=== PATIENT | female | born 1995 | race African-American/Black ===

== ENCOUNTER → 2023-09-26 06:40 | Outpatient (CLI) | payer OTHER, SELFPAY ==
--- NOTE | 2023-09-26 06:42 | DI.US.S_ITS ---
PROCEDURE: US OB >= 14 WEEKS FETUS INDICATIONS: anatomy OUTSIDE/PRIOR DATING DATA: Last menstrual period (LMP): 04/27/2023. LMP-based estimated date of delivery (RONDA): 02/01/2024. TECHNIQUE: Real-time scanning was performed of the fetus, with image documentation and biometric measurements. COMPARISON: [facility], US, OB >= 14 WEEKS FETUS, 09/21/2023, 15:40. FINDINGS: General: A single living intrauterine gestation is present. Presentation: Vertex. Placenta: Placental position is fundal , without previa. Amniotic fluid index: 15.8 cm, normal range is 5-24 cm. Single deepest vertical pocket is 5.7 cm. heart rate: 153 beats per minute. Maternal cervical canal: 3.4 cm long. Normal lower limit is 2.5 cm. biometrics: Biparietal diameter: 5.4 cm, 22 weeks and 3 days Head circumference: 19.9 cm, 22 weeks and 1 day Abdominal circumference: 17.6 cm, 22 weeks and 4 days Femur length: 3.8 cm, 22 weeks and 2 days Clinically estimated gestational age: 21 weeks and 5 days Composite gestational age from present scan: 22 weeks and 3 days Estimated weight and percentile: 500 g, 79th percentile Anatomic survey: Neuro: Ventricles are non-dilated at less than 10 mm. Cisterna magna is normal at 3-11 mm. Cerebellum is normal in size and morphology. Nuchal skin fold: Normal at less than 6 mm between 14-21 weeks gestational age. Face: Nose and lips, facial profile are normal. Spine: No evidence for spina bifida. Heart: 4-chambered heart is present LVOT unremarkable. RVOT is probably normal, but not well seen on 1 the plane. Diaphragm: Diaphragm is intact. Stomach: Left-sided stomach is present. Kidneys: Renal pelvises measure 5 mm bilaterally. Cord: 3-vessel cord has orthotopic insertion. Bladder: Normal in size. Extremities: All 4 extremities identified. IMPRESSION: Living intrauterine gestation at 22 weeks and 3 days. EFW is within normal limits at the 79th percentile. Bilateral borderline renal pelviectasis at 5 mm bilaterally. UTD A1. RVOT was not well seen, possibly within normal limits on cine view. Consider follow-up for the above findings. Dictated by: Florencio Alicia M.D. on 09/26/2023 at 11:44 Approved by: Florencio Alicia M.D. on 09/26/2023 at 11:52
== END ==
LOC: US 06:41
PROVIDERS: PCP Internal Medicine; Referring Provider Student in an Organized Health Care Education/Training Program; Visit Provider Student in an Organized Health Care Education/Training Program
DX: Z34.82 Encounter for supervision of other normal pregnancy, second trimester (principal); Z3A.22 22 weeks gestation of pregnancy
CPT/HCPCS: 76811

== ENCOUNTER → 2023-10-29 16:50 | Outpatient (CLI) | payer OTHER, SELFPAY ==
--- NOTE | 2023-10-29 16:51 | DI.US.S_ITS ---
PROCEDURE: US OB FOLLOW UP INDICATIONS: renal pelviectasis, LVOT not visualized, f/u growth OUTSIDE/PRIOR DATING DATA: Last menstrual period (LMP): 04/27/2023. LMP-based estimated date of delivery (RONDA): 02/01/2024. TECHNIQUE: Real-time scanning was performed of the fetus, with image documentation. COMPARISON: [facility], , US OB >= 14 WEEKS FETUS, 09/26/2023, 6:53. [facility], , US OB >= 14 WEEKS FETUS, 10/05/2023, 8:22. FINDINGS: A single living intrauterine gestation is present. Presentation: Transverse. Placenta: Placental position is fundal, without previa. Amniotic fluid index: 13.3 cm, normal range is 5-24 cm. Single deepest vertical pocket is 3.8 cm. heart rate: 152 beats per minute. Maternal cervical canal: 3 cm long. Normal lower limit is 2.5 cm. Clinically estimated gestational age: 28 weeks RVOT is within normal limits. The right renal pelvis is not well seen on today's study. IMPRESSION: RVOT within normal limits. Right renal pelvis not well seen on today's study. Normal ABDIRAHMAN. Dictated by: Florencio Alicia M.D. on 10/30/2023 at 9:23 Approved by: Florencio Alicia M.D. on 10/30/2023 at 9:26
== END ==
PROVIDERS: PCP Internal Medicine; Referring Provider Student in an Organized Health Care Education/Training Program; Visit Provider Student in an Organized Health Care Education/Training Program
DX: Z36.2 Encounter for other antenatal screening follow-up (principal); Z3A.28 28 weeks gestation of pregnancy
CPT/HCPCS: 76816

== ENCOUNTER → 2023-10-31 10:33 | Outpatient (CLI) | payer OTHER, SELFPAY ==
[2023-10-31 12:05] LABS: Hemoglobin 10.3 g/dL (12.0-16.0)
[2023-10-31 12:29] LABS: GTT (PREG) 1 Hour PP 50gm Dose 145 mg/dL (76-139)
== END ==
PROVIDERS: PCP Internal Medicine; Referring Provider Student in an Organized Health Care Education/Training Program; Visit Provider Student in an Organized Health Care Education/Training Program
DX: Z34.02 Encounter for supervision of normal first pregnancy, second trimester (principal); Z3A.26 26 weeks gestation of pregnancy
CPT/HCPCS: 36415; 82950; 85014; 85018; 86850; 86900; 86901

== ENCOUNTER → 2023-11-09 07:45 | Outpatient (CLI) | payer OTHER, SELFPAY ==
[2023-11-09 09:08] LABS: Glucose Fasting Gestational 89 mg/dL (76-95)
[2023-11-09 10:31] LABS: Glucose 1 Hour Gest 183 mg/dL (76-180)
[2023-11-09 11:11] LABS: Glucose Tol Interp,Gestational INTERPRETATION
[2023-11-09 12:07] LABS: Glucose 2 Hour Gest 141 mg/dL (76-155)
[2023-11-09 12:11] LABS: Glucose 3 Hour Gest 104 mg/dL (76-140)
== END ==
PROVIDERS: PCP Internal Medicine; Referring Provider Student in an Organized Health Care Education/Training Program; Visit Provider Student in an Organized Health Care Education/Training Program
DX: Z34.80 Encounter for supervision of other normal pregnancy, unspecified trimester (principal); R73.09 Other abnormal glucose
CPT/HCPCS: 36415; 82951; 82952

== ENCOUNTER 2023-12-07 08:47 | Outpatient (CLI) | payer OTHER, SELFPAY ==
--- NOTE | 2023-12-07 08:54 | DI.US.S_ITS ---
PROCEDURE: US OB >= 14 WEEKS FETUS INDICATIONS: growth OUTSIDE/PRIOR DATING DATA: Last menstrual period (LMP): 04/27/2023. LMP-based estimated date of delivery (RONDA): 02/01/2024 First dating scan (date and location): Un known Estimated date of delivery (RONDA) from first dating scan: Unknown. The calculations are made using the clinical RONDA of 02/01/2024. TECHNIQUE: Real-time scanning was performed of the fetus, with image documentation and biometric measurements. COMPARISON: [facility], , OB >= 14 WEEKS FETUS, 10/05/2023, 8:22. [facility], , OB FOLLOW UP, 10/29/2023, 17:03. FINDINGS: General: A single living intrauterine gestation is present. Presentation: Vertex. Placenta: Placental position is fundal , without previa. Amniotic fluid index: 20.1 cm, normal range is 5-24 cm. Single deepest vertical pocket is 8.2 cm. heart rate: 157 beats per minute. Maternal cervical canal: Not well seen biometrics: Biparietal diameter: 8.2 cm 33 weeks 0 days Head circumference: 29.4 cm 32 weeks 3 days Abdominal circumference: 27.7 cm 31 weeks 5 days Femur length: 6.2 cm 32 weeks 0 days Clinically estimated gestational age: 32 weeks 0 days Composite gestational age from present scan: 32 weeks 2 days Estimated weight and percentile: 1884 g 39th percentile IMPRESSION: Single live intrauterine with gestational age today of 32 weeks 2 days. Appropriate interval growth and ABDIRAHMAN. We strive to produce accurate, complete, and clear reports of imaging services. To assist us in improving patient care, this report was composed using standard report templates and voice recognition software. Therefore, it may contain abnormal punctuation, insertions and/or omissions. Occasional wrong-word or sound-alike substitutions may occur. Though we review the report and make efforts to correct it, we do recommend that the report be read carefully in proper context to recognize any text inaccuracies. Dictated by: Shazia Blandon M.D. on 12/07/2023 at 11:34 Approved by: Shazia Blandon M.D. on 12/07/2023 at 11:36
[2023-12-07 09:32] LABS: Add Manual Diff / Slide Review NO; Basophils Absolute Auto 0 /uL (0-100); Basophils Percent Auto 0.5 % (0-2); Eosinophils Absolute Auto 100 /uL (0-450); Eosinophils Percent Auto 0.7 % (2-4); Hematocrit 30.4 % (36-46); Hemoglobin 9.9 g/dL (12.0-16.0); Lymphocytes Absolute Auto 1100 /uL (1100-4500); Lymphocytes Percent Auto 14.8 % (25-40); Mean Corpuscular HGB Conc 32.8 % (30-36); Mean Corpuscular Hemoglobin 26.1 PG (26-34); Mean Corpuscular Volume 79.7 fL (80-100); Monocytes Absolute Auto 700 /uL (0-900); Monocytes Percent Auto 9.6 % (3-14); Neutrophils Absolute Auto 5500 /uL (1500-7000); Neutrophils Percent Auto 74.4 % (50-75); Platelet Count 281 X10^3/uL (150-400); Red Blood Cell Count 3.81 X10^6/uL (4.0-5.2); Red Cell Distribution Width 16.1 % (11.6-14.8); White Blood Cell Count 7.4 X10^3/uL (4.5-11.0)
[2023-12-07 09:46] LABS: Alanine Aminotransferase 12 IU/L (<35); Albumin 3.2 g/dL (3.5-5.0); Alkaline Phosphatase 87 U/L (38-126); Aspartate Aminotransferase 20 IU/L (14-36); BUN Creatinine Ratio 5.2 (6-22); Bilirubin Total 0.3 mg/dL (0.2-1.3); Blood Urea Nitrogen 3 mg/dL (7-17); Calcium 8.7 mg/dL (8.4-10.2); Carbon Dioxide 24 mmol/L (22-32); Chloride 109 mmol/L (98-107); Estimated Glomerular Filt Rate > 60 mL/min (>60); Globulin 3.3 g/dL (1.7-4.1); Glucose 88 mg/dL (70-100); HEMOLYSIS < 15 (0-50); Potassium 3.3 mmol/L (3.4-5.1); Sodium 136 mmol/L (137-145); Total Protein 6.5 g/dL (6.3-8.2); Uric Acid 4.5 mg/dL (2.5-6.2)
[2023-12-07 09:48] LABS: Appearance Urine UA CLEAR; Bilirubin Urine UA NEGATIVE (NEGATIVE); Color Urine UA YELLOW; Glucose Urine UA NEGATIVE (Negative); Ketones Urine UA NEGATIVE (NEGATIVE); Leukocyte Esterase Urine UA NEGATIVE (NEGATIVE); Nitrite Urine UA NEGATIVE (Negative); Occult Blood Urine UA NEGATIVE (Negative); Protein Urine UA NEGATIVE (Negative); Urobilinogen Urine UA 0.2 E.U./dL (0.2)
[2023-12-07 09:54] LABS: Urine Volume 10mL (spun)
[2023-12-07 09:55] LABS: Bacteria Urine None Seen; Culture Indicated Urine Cult Not Indicated; RBC Urine None Seen (0-5/HPF); Squamous Epithelial Cell Urine None Seen (0-5/HPF); WBC Urine None Seen (0-5/HPF)
[2023-12-07 09:57] LABS: Creatinine Urine Random 64.02 mg/dL; Protein (Total) Urine Random 23 mg/dL (0-12); Protein Creatinine Ratio Urine 0.35 GRAM/24H
--- NOTE | 2023-12-07 10:19 | P.TNLD_ITS ---
Visit Information Visit Information Date of evaluation: 12/07/23 Primary OB Provider: Kelli Zuleta Comments/Additional reasons for admission: pre-eclampsia evaluation Vital Signs Vital Signs: serial BPs all mild range, with highest BP 149/83 see OBIX [facility] Medical History (Updated 12/07/23 @ 11:06 by Kelli Zuleta DO) Tinnitus (~2020) Heavy menstrual period (~2018) delivery Surgical History (Updated 11/01/23 @ 19:10 by Ruby Chacon) [place] teeth extracted (~07/2022) Family History (Updated 11/01/23 @ 19:12 by Ruby Chacon) Grandmother Diabetes mellitus Grandmother Diabetes mellitus Father Hypertension Sister Bipolar disorder Schizophrenia Sister Diabetes mellitus Grandmother Diabetes mellitus Grandmother Diabetes mellitus Social History marital status: number of children: 0 household members: spouse lives independently: Yes caregiver/support person: No housing: house pets and animals: Yes (dog) education level: college (some college) occupational status: employed current occupational exposures/hazards: No special ev needs: No travel history: over 6 months ago seatbelt use: always water heater temp set < 120 deg: Yes working smoke detector in home: Yes fire extinguisher in home: No carbon monox detector in home: Yes firearms in home: No do you feel safe at home: Yes Smoking Status: Never smoker second hand exposure: No alcohol intake: former (occasionally when not ) substance use type: does not use during the past year weight has: remained stable well-balanced diet: about half the time daily servings fruits/ve-4 (average 1-2) caffeine: Yes (minimal/occasional) Type(s) of exercise: walking Objective Labs 12/07/23 09:17 12/07/23 09:17 Labs: Laboratory Results - last 24 hr 12/07/23 12/07/23 09:15 09:17 WBC 7.4 RBC 3.81 L Hgb 9.9 L Hct 30.4 L MCV 79.7 L MCH 26.1 MCHC 32.8 RDW 16.1 H Plt Count 281 Neut % (Auto) 74.4 Lymph % (Auto) 14.8 L Clare % (Auto) 9.6 Eos % (Auto) 0.7 L Baso % (Auto) 0.5 Neut # (Auto) 5500 Lymph # (Auto) 1100 Clare # (Auto) 700 Eos # (Auto) 100 Baso # (Auto) 0 Sodium 136 L Potassium 3.3 L Chloride 109 H Carbon Dioxide 24 BUN 3 L Creatinine 0.58 Estimated GFR > 60 BUN/Creatinine Ratio 5.2 L Glucose 88 Uric Acid 4.5 Calcium 8.7 Total Bilirubin 0.3 AST 20 ALT 12 Alkaline Phosphatase 87 Total Protein 6.5 Albumin 3.2 L Globulin 3.3 Albumin/Globulin Ratio 1.0 Urine Color Yellow Urine Appearance Clear Urine pH 7.0 Ur Specific Lamar 1.010 Urine Protein Negative Urine Glucose (UA) Negative Urine Ketones Negative Urine Occult Blood Negative Urine Nitrate Negative Urine Bilirubin Negative Urine Urobilinogen 0.2 Ur Leukocyte Esterase Negative Urine RBC None seen Urine WBC None seen Ur Squamous Epith Cells None seen Urine Bacteria None seen Ur Culture Indicated? Cult not indicated Vol Urine Centrifuged 10ml (spun) U Random Total Protein 23 H Urine Creatinine 64.02 Protein/Creatinin Ratio 0.35 Evaluation Evaluation Baseline heart rate: 140 Variability: Moderate (11-25) monitor accelerations: Present Monitor Decelerations: Absent Category of Tracing: Reactive Diagnosis, Plan/Disposition Final Diagnosis (1) Pre-eclampsia, mild, antepartum: Status: Acute Plan/Disposition Plan: 28yo at 32+0wks now with newly diagnosed pre-e without severe features based on mild range blood pressures and urine p:c of 0.35 today. I discussed her diagnosis with her, and reviewed signs/symptoms of severe features. Discussed plan for twice weekly NSTs, with weekly labs, and plan for induction by 37+0wks if she does not develop severe features. -all her and her partner's questions were answered at this time -pt to f/u next week as scheduled OB Disposition: home
== END 2023-12-07 10:18 | disposition home or self-care (01) ==
LOC: LABOR 08:49 → OB 12-10 13:09
PROVIDERS: PCP Internal Medicine; Referring Provider Student in an Organized Health Care Education/Training Program; Visit Provider Student in an Organized Health Care Education/Training Program
DX: O14.03 Mild to moderate pre-eclampsia, third trimester (principal); Z3A.32 32 weeks gestation of pregnancy
CPT/HCPCS: 36415; 59025; 76811; 80053; 81001; 84550; 85025; G0378; G0379

== ENCOUNTER 2023-12-11 16:40 | Outpatient (CLI) | payer OTHER, SELFPAY | END 2023-12-11 17:20 | disposition home or self-care (01) | LOC: OB 12-12 09:20 | PROVIDERS: PCP Internal Medicine; Referring Provider Student in an Organized Health Care Education/Training Program; Visit Provider Student in an Organized Health Care Education/Training Program | DX: O14.93 Unspecified pre-eclampsia, third trimester (principal); Z3A.32 32 weeks gestation of pregnancy | CPT/HCPCS: 59025; G0378; G0379 ==

== ENCOUNTER 2023-12-14 16:44 | Outpatient (CLI) | payer OTHER, SELFPAY ==
--- NOTE | 2023-12-14 17:20 | PM.OBTRLD ---
Visit Information Visit Information Date of evaluation: 12/14/23 Primary OB Provider: Kelli Zuleta On-call OB Provider: gina Reason for Evaluation: Yes non-stress test Comments/Additional reasons for admission: preE without severe features weekly PIH labs [facility] Medical History (Updated 12/07/23 @ 11:06 by Kelli Zuleta DO) Tinnitus (~2020) Heavy menstrual period (~2018) delivery Surgical History (Updated 11/01/23 @ 19:10 by Ruby Chacon) [place] teeth extracted (~07/2022) Family History (Updated 11/01/23 @ 19:12 by Ruby Chacon) Grandmother Diabetes mellitus Grandmother Diabetes mellitus Father Hypertension Sister Bipolar disorder Schizophrenia Sister Diabetes mellitus Grandmother Diabetes mellitus Grandmother Diabetes mellitus Social History marital status: number of children: 0 household members: spouse lives independently: Yes caregiver/support person: No housing: house pets and animals: Yes (dog) education level: college (some college) occupational status: employed current occupational exposures/hazards: No special ev needs: No travel history: over 6 months ago seatbelt use: always water heater temp set < 120 deg: Yes working smoke detector in home: Yes fire extinguisher in home: No carbon monox detector in home: Yes firearms in home: No do you feel safe at home: Yes Smoking Status: Never smoker second hand exposure: No alcohol intake: former (occasionally when not ) substance use type: does not use during the past year weight has: remained stable well-balanced diet: about half the time daily servings fruits/ve-4 (average 1-2) caffeine: Yes (minimal/occasional) Type(s) of exercise: walking Exam Vital Signs (past 8 hours): BP 133/83 HR 76 Evaluation Evaluation Baseline heart rate: 140 Variability: Average (6-10) monitor accelerations: Present Monitor Decelerations: Absent Category of Tracing: Reactive Status: Category l Diagnosis, Plan/Disposition Plan/Disposition Plan: strict precautions keep all appts as scheduled OB Disposition: home
[2023-12-14 17:38] LABS: Add Manual Diff / Slide Review NO; Basophils Absolute Auto 0 /uL (0-100); Basophils Percent Auto 0.5 % (0-2); Eosinophils Absolute Auto 100 /uL (0-450); Eosinophils Percent Auto 1.6 % (2-4); Hematocrit 31.2 % (36-46); Hemoglobin 10.4 g/dL (12.0-16.0); Lymphocytes Absolute Auto 1300 /uL (1100-4500); Lymphocytes Percent Auto 15.3 % (25-40); Mean Corpuscular HGB Conc 33.2 % (30-36); Mean Corpuscular Hemoglobin 26.6 PG (26-34); Mean Corpuscular Volume 80.1 fL (80-100); Monocytes Absolute Auto 1000 /uL (0-900); Neutrophils Absolute Auto 6000 /uL (1500-7000); Neutrophils Percent Auto 70.6 % (50-75); Platelet Count 349 X10^3/uL (150-400); Red Blood Cell Count 3.89 X10^6/uL (4.0-5.2); Red Cell Distribution Width 16.1 % (11.6-14.8); White Blood Cell Count 8.5 X10^3/uL (4.5-11.0)
[2023-12-14 17:51] LABS: Alanine Aminotransferase 10 IU/L (<35); Albumin 3.5 g/dL (3.5-5.0); Albumin Globulin Ratio 1.2 (1.0-2.8); Alkaline Phosphatase 88 U/L (38-126); Aspartate Aminotransferase 18 IU/L (14-36); BUN Creatinine Ratio 5.6 (6-22); Bilirubin Total 0.3 mg/dL (0.2-1.3); Blood Urea Nitrogen 4 mg/dL (7-17); Calcium 8.8 mg/dL (8.4-10.2); Carbon Dioxide 23 mmol/L (22-32); Chloride 106 mmol/L (98-107); Estimated Glomerular Filt Rate > 60 mL/min (>60); Glucose 86 mg/dL (70-100); HEMOLYSIS < 15 (0-50); Potassium 3.8 mmol/L (3.4-5.1); Sodium 134 mmol/L (137-145); Total Protein 6.5 g/dL (6.3-8.2)
== END 2023-12-14 17:35 | disposition home or self-care (01) ==
LOC: OB 12-17 09:08
PROVIDERS: Obstetrics & Gynecology; PCP Internal Medicine; Referring Provider Student in an Organized Health Care Education/Training Program; Visit Provider Student in an Organized Health Care Education/Training Program
DX: O14.03 Mild to moderate pre-eclampsia, third trimester (principal); Z3A.33 33 weeks gestation of pregnancy
CPT/HCPCS: 36415; 59025; 80053; 85025; G0378; G0379

== ENCOUNTER 2023-12-18 16:52 | Outpatient (CLI) | payer OTHER, SELFPAY ==
--- NOTE | 2023-12-18 17:16 | P.TNLD_ITS ---
Visit Information Visit Information Date of evaluation: 12/18/23 Primary OB Provider: Kelli Zuleta On-call OB Provider: Lisa Savage Reason for Evaluation: Yes non-stress test Comments/Additional reasons for admission: GDM, preE without severe features on labetalol Vital Signs Vital Signs: BP 110s/60s, 105/70 PFSH Medical History (Updated 12/07/23 @ 11:06 by Kelli Zuleta DO) Tinnitus (~2020) Heavy menstrual period (~2018) delivery Surgical History (Updated 11/01/23 @ 19:10 by Ruby Chacon) [place] teeth extracted (~07/2022) Family History (Updated 11/01/23 @ 19:12 by Ruby Chacon) Grandmother Diabetes mellitus Grandmother Diabetes mellitus Father Hypertension Sister Bipolar disorder Schizophrenia Sister Diabetes mellitus Grandmother Diabetes mellitus Grandmother Diabetes mellitus Social History marital status: number of children: 0 household members: spouse lives independently: Yes caregiver/support person: No housing: house pets and animals: Yes (dog) education level: college (some college) occupational status: employed current occupational exposures/hazards: No special ev needs: No travel history: over 6 months ago seatbelt use: always water heater temp set < 120 deg: Yes working smoke detector in home: Yes fire extinguisher in home: No carbon monox detector in home: Yes firearms in home: No do you feel safe at home: Yes Smoking Status: Never smoker second hand exposure: No alcohol intake: former (occasionally when not ) substance use type: does not use during the past year weight has: remained stable well-balanced diet: about half the time daily servings fruits/ve-4 (average 1-2) caffeine: Yes (minimal/occasional) Type(s) of exercise: walking Evaluation Evaluation Baseline heart rate: 130 Variability: Moderate (11-25) monitor accelerations: Present Monitor Decelerations: Absent Status: Category l Diagnosis, Plan/Disposition Plan/Disposition Plan: reactive NST, strict preE/PTl precautions, return as scheduled for twice weekly surveillance, plan repeat interval PIH labs at time of next encounter OB Disposition: home
== END 2023-12-18 17:40 | disposition home or self-care (01) ==
LOC: LABOR 17:03 → OB 12-20 12:32
PROVIDERS: PCP Internal Medicine; Referring Provider Student in an Organized Health Care Education/Training Program; Visit Provider Student in an Organized Health Care Education/Training Program
DX: O14.03 Mild to moderate pre-eclampsia, third trimester (principal); O24.913 Unspecified diabetes mellitus in pregnancy, third trimester; Z3A.33 33 weeks gestation of pregnancy
CPT/HCPCS: 59025; G0378; G0379

== ENCOUNTER 2023-12-21 08:30 | Outpatient (CLI) | payer OTHER, SELFPAY ==
--- NOTE | 2023-12-21 09:24 | PM.OBTRLD ---
Visit Information Visit Information Date of evaluation: 12/21/23 Primary OB Provider: Kelli Zuleta Reason for Evaluation: Yes non-stress test Vital Signs Vital Signs: BP 142/89, 128/77, 133/80, 140/85 [facility] Medical History (Updated 12/07/23 @ 11:06 by Kelli Zuleta DO) Tinnitus (~2020) Heavy menstrual period (~2018) delivery Surgical History (Updated 11/01/23 @ 19:10 by Ruby Chacon) [place] teeth extracted (~07/2022) Family History (Updated 11/01/23 @ 19:12 by Ruby Chacon) Grandmother Diabetes mellitus Grandmother Diabetes mellitus Father Hypertension Sister Bipolar disorder Schizophrenia Sister Diabetes mellitus Grandmother Diabetes mellitus Grandmother Diabetes mellitus Social History marital status: number of children: 0 household members: spouse lives independently: Yes caregiver/support person: No housing: house pets and animals: Yes (dog) education level: college (some college) occupational status: employed current occupational exposures/hazards: No special ev needs: No travel history: over 6 months ago seatbelt use: always water heater temp set < 120 deg: Yes working smoke detector in home: Yes fire extinguisher in home: No carbon monox detector in home: Yes firearms in home: No do you feel safe at home: Yes Smoking Status: Never smoker second hand exposure: No alcohol intake: former (occasionally when not ) substance use type: does not use during the past year weight has: remained stable well-balanced diet: about half the time daily servings fruits/ve-4 (average 1-2) caffeine: Yes (minimal/occasional) Type(s) of exercise: walking Objective Labs 12/21/23 09:22 12/21/23 09:22 Labs: ALT/AST 02/27 Evaluation Evaluation Baseline heart rate: 135 Variability: Moderate (11-25) monitor accelerations: Present Monitor Decelerations: Absent Category of Tracing: Reactive Diagnosis, Plan/Disposition Final Diagnosis (1) Pre-eclampsia, mild, antepartum: Status: Acute Plan/Disposition Plan: Follow up in clinic as scheduled OB Disposition: home
[2023-12-21 09:26] LABS: Creatinine Urine Random 140.09 mg/dL; Protein (Total) Urine Random 30 mg/dL (0-12); Protein Creatinine Ratio Urine 0.21 GRAM/24H
[2023-12-21 09:31] LABS: Add Manual Diff / Slide Review NO; Basophils Absolute Auto 0 /uL (0-100); Basophils Percent Auto 0.3 % (0-2); Eosinophils Absolute Auto 100 /uL (0-450); Hematocrit 30.2 % (36-46); Lymphocytes Absolute Auto 900 /uL (1100-4500); Lymphocytes Percent Auto 13.4 % (25-40); Mean Corpuscular HGB Conc 33.2 % (30-36); Mean Corpuscular Hemoglobin 26.2 PG (26-34); Mean Corpuscular Volume 79.1 fL (80-100); Monocytes Absolute Auto 700 /uL (0-900); Monocytes Percent Auto 10.5 % (3-14); Neutrophils Absolute Auto 5000 /uL (1500-7000); Neutrophils Percent Auto 74.8 % (50-75); Platelet Count 306 X10^3/uL (150-400); Red Blood Cell Count 3.82 X10^6/uL (4.0-5.2); Red Cell Distribution Width 16.9 % (11.6-14.8); White Blood Cell Count 6.7 X10^3/uL (4.5-11.0)
[2023-12-21 09:44] LABS: Alanine Aminotransferase 10 IU/L (<35); Albumin 3.2 g/dL (3.5-5.0); Albumin Globulin Ratio 1.2 (1.0-2.8); Alkaline Phosphatase 92 U/L (38-126); Aspartate Aminotransferase 17 IU/L (14-36); Bilirubin Total 0.3 mg/dL (0.2-1.3); Calcium 8.8 mg/dL (8.4-10.2); Carbon Dioxide 23 mmol/L (22-32); Chloride 107 mmol/L (98-107); Estimated Glomerular Filt Rate > 60 mL/min (>60); Globulin 2.7 g/dL (1.7-4.1); Glucose 92 mg/dL (70-100); HEMOLYSIS < 15 (0-50); Potassium 3.9 mmol/L (3.4-5.1); Sodium 136 mmol/L (137-145); Total Protein 5.9 g/dL (6.3-8.2); Uric Acid 4.3 mg/dL (2.5-6.2)
[2023-12-21 10:08] LABS: BUN Creatinine Ratio 3.3 (6-22); Blood Urea Nitrogen < 2 mg/dL (7-17)
== END 2023-12-21 10:29 | disposition home or self-care (01) ==
LOC: LABOR 08:44 → OB 12-25 12:22
PROVIDERS: PCP Internal Medicine; Referring Provider Student in an Organized Health Care Education/Training Program; Visit Provider Student in an Organized Health Care Education/Training Program
DX: O14.03 Mild to moderate pre-eclampsia, third trimester (principal); Z3A.34 34 weeks gestation of pregnancy
CPT/HCPCS: 36415; 59025; 80053; 84550; 85025; G0378; G0379

== ENCOUNTER 2023-12-25 16:38 | Observation (INO) | payer OTHER, SELFPAY ==
--- NOTE | 2023-12-25 17:27 | P.TNLD_ITS ---
Visit Information Visit Information Date of evaluation: 12/25/23 Primary OB Provider: Kelli Zuleta Reason for Evaluation: Yes non-stress test Vital Signs Vital Signs: BPs mild range PFSH Medical History (Updated 12/07/23 @ 11:06 by Kelli Zuleta DO) Tinnitus (~2020) Heavy menstrual period (~2018) delivery Surgical History (Updated 11/01/23 @ 19:10 by Ruby Chacon) [place] teeth extracted (~07/2022) Family History (Updated 11/01/23 @ 19:12 by Ruby Chacon) Grandmother Diabetes mellitus Grandmother Diabetes mellitus Father Hypertension Sister Bipolar disorder Schizophrenia Sister Diabetes mellitus Grandmother Diabetes mellitus Grandmother Diabetes mellitus Social History marital status: number of children: 0 household members: spouse lives independently: Yes caregiver/support person: No housing: house pets and animals: Yes (dog) education level: college (some college) occupational status: employed current occupational exposures/hazards: No special ev needs: No travel history: over 6 months ago seatbelt use: always water heater temp set < 120 deg: Yes working smoke detector in home: Yes fire extinguisher in home: No carbon monox detector in home: Yes firearms in home: No do you feel safe at home: Yes Smoking Status: Never smoker second hand exposure: No alcohol intake: former (occasionally when not ) substance use type: does not use during the past year weight has: remained stable well-balanced diet: about half the time daily servings fruits/ve-4 (average 1-2) caffeine: Yes (minimal/occasional) Type(s) of exercise: walking Evaluation Evaluation Baseline heart rate: 130 Variability: Moderate (11-25) monitor accelerations: Present Monitor Decelerations: Absent Category of Tracing: Reactive Diagnosis, Plan/Disposition Final Diagnosis (1) Pre-eclampsia, mild, antepartum: Status: Acute Plan/Disposition Plan: Follow-up in clinic as scheduled. OB Disposition: home
== END 2023-12-25 17:26 | disposition home or self-care (01) ==
PROVIDERS: Admitting Provider Student in an Organized Health Care Education/Training Program; PCP Internal Medicine; Referring Provider Student in an Organized Health Care Education/Training Program; Visit Provider Student in an Organized Health Care Education/Training Program
DX: O14.03 Mild to moderate pre-eclampsia, third trimester (principal); Z3A.34 34 weeks gestation of pregnancy
CPT/HCPCS: 59025; G0378; G0379

== ENCOUNTER 2023-12-28 08:06 | Observation (INO) | payer OTHER, SELFPAY ==
--- NOTE | 2023-12-28 08:58 | P.TNLD_ITS ---
Visit Information Visit Information Date of evaluation: 12/28/23 Primary OB Provider: Kelli Zuleta Reason for Evaluation: Yes non-stress test Vital Signs Vital Signs: BP 137/86 [facility] Medical History (Updated 12/28/23 @ 15:41 by Kelli Zuleta DO) Tinnitus (~2020) Heavy menstrual period (~2018) delivery Surgical History (Updated 11/01/23 @ 19:10 by Ruby Chacon) [place] teeth extracted (~07/2022) Family History (Updated 11/01/23 @ 19:12 by Ruby Chacon) Grandmother Diabetes mellitus Grandmother Diabetes mellitus Father Hypertension Sister Bipolar disorder Schizophrenia Sister Diabetes mellitus Grandmother Diabetes mellitus Grandmother Diabetes mellitus Social History marital status: number of children: 0 household members: spouse lives independently: Yes caregiver/support person: No housing: house pets and animals: Yes (dog) education level: college (some college) occupational status: employed current occupational exposures/hazards: No special ev needs: No travel history: over 6 months ago seatbelt use: always water heater temp set < 120 deg: Yes working smoke detector in home: Yes fire extinguisher in home: No carbon monox detector in home: Yes firearms in home: No do you feel safe at home: Yes Smoking Status: Never smoker second hand exposure: No alcohol intake: former (occasionally when not ) substance use type: does not use during the past year weight has: remained stable well-balanced diet: about half the time daily servings fruits/ve-4 (average 1-2) caffeine: Yes (minimal/occasional) Type(s) of exercise: walking Objective Labs 12/28/23 08:55 12/28/23 08:55 Labs: AST/ALT 47/12 Evaluation Evaluation Baseline heart rate: 145 Variability: Moderate (11-25) monitor accelerations: Present Monitor Decelerations: Absent Category of Tracing: Reactive Diagnosis, Plan/Disposition Final Diagnosis (1) Pre-eclampsia, mild, antepartum: Status: Acute Plan/Disposition Plan: 28-year-old at 35+ 0 weeks with preeclampsia without severe features. Lab work today shows no changes other than increased AST as compared to last week, however not double normal at this point. -reviewed symptoms of severe features with patient -scheduled for induction at 37+ 0 weeks -follow up next week as scheduled OB Disposition: home
[2023-12-28 14:14] LABS: Add Manual Diff / Slide Review NO; Basophils Absolute Auto 100 /uL (0-100); Basophils Percent Auto 0.8 % (0-2); Eosinophils Absolute Auto 100 /uL (0-450); Hematocrit 32.8 % (36-46); Hemoglobin 10.5 g/dL (12.0-16.0); Lymphocytes Absolute Auto 900 /uL (1100-4500); Mean Corpuscular Hemoglobin 25.9 PG (26-34); Mean Corpuscular Volume 80.9 fL (80-100); Monocytes Absolute Auto 700 /uL (0-900); Monocytes Percent Auto 9.8 % (3-14); Neutrophils Absolute Auto 5400 /uL (1500-7000); Neutrophils Percent Auto 75.4 % (50-75); Platelet Count 309 X10^3/uL (150-400); Red Blood Cell Count 4.06 X10^6/uL (4.0-5.2); Red Cell Distribution Width 17.4 % (11.6-14.8); White Blood Cell Count 7.2 X10^3/uL (4.5-11.0)
[2023-12-28 14:19] LABS: Alanine Aminotransferase 12 IU/L (<35); Albumin 3.5 g/dL (3.5-5.0); Albumin Globulin Ratio 1.2 (1.0-2.8); Alkaline Phosphatase 106 U/L (38-126); Aspartate Aminotransferase 47 IU/L (14-36); Bilirubin Total 0.3 mg/dL (0.2-1.3); Calcium 8.8 mg/dL (8.4-10.2); Carbon Dioxide 23 mmol/L (22-32); Chloride 108 mmol/L (98-107); Estimated Glomerular Filt Rate > 60 mL/min (>60); Glucose 79 mg/dL (70-100); HEMOLYSIS < 15 (0-50); Potassium 3.3 mmol/L (3.4-5.1); Sodium 138 mmol/L (137-145); Total Protein 6.5 g/dL (6.3-8.2)
[2023-12-28 14:22] LABS: BUN Creatinine Ratio 3.6 (6-22); Blood Urea Nitrogen < 2 mg/dL (7-17)
== END 2023-12-28 08:57 | disposition home or self-care (01) ==
LOC: LABOR 08:08
PROVIDERS: Admitting Provider Student in an Organized Health Care Education/Training Program; PCP Internal Medicine; Referring Provider Student in an Organized Health Care Education/Training Program; Visit Provider Student in an Organized Health Care Education/Training Program
DX: O14.03 Mild to moderate pre-eclampsia, third trimester (principal); Z3A.35 35 weeks gestation of pregnancy
CPT/HCPCS: 59025; 80053; 85025; 87653; G0378; G0379

== ENCOUNTER → 2023-12-28 09:36 | Outpatient (CLI) | payer OTHER, SELFPAY ==
[2023-12-28 11:41] LABS: Strep Grp B PCR POS for Grp B Strep
== END ==
PROVIDERS: PCP Internal Medicine; Referring Provider Student in an Organized Health Care Education/Training Program; Visit Provider Student in an Organized Health Care Education/Training Program
DX: Z36.85 Encounter for antenatal screening for Streptococcus B (principal)
CPT/HCPCS: 87653

== ENCOUNTER 2023-12-31 17:01 | Observation (INO) | payer OTHER, SELFPAY | END 2023-12-31 17:47 | disposition home or self-care (01) | PROVIDERS: Admitting Provider Student in an Organized Health Care Education/Training Program; PCP Internal Medicine; Referring Provider Student in an Organized Health Care Education/Training Program; Visit Provider Student in an Organized Health Care Education/Training Program | DX: O13.3 Gestational [pregnancy-induced] hypertension without significant proteinuria, third trimester (principal); Z3A.35 35 weeks gestation of pregnancy | CPT/HCPCS: 59025; G0378; G0379 ==

== ENCOUNTER → 2024-01-03 15:57 | Outpatient (CLI) | payer OTHER, SELFPAY ==
[2024-01-03 17:17] LABS: Add Manual Diff / Slide Review NO; Basophils Absolute Auto 0 /uL (0-100); Basophils Percent Auto 0.3 % (0-2); Eosinophils Absolute Auto 100 /uL (0-450); Hemoglobin 10.6 g/dL (12.0-16.0); Lymphocytes Absolute Auto 1200 /uL (1100-4500); Lymphocytes Percent Auto 15.5 % (25-40); Mean Corpuscular Hemoglobin 26.3 PG (26-34); Mean Corpuscular Volume 79.5 fL (80-100); Monocytes Absolute Auto 700 /uL (0-900); Monocytes Percent Auto 9.3 % (3-14); Neutrophils Absolute Auto 5600 /uL (1500-7000); Neutrophils Percent Auto 73.9 % (50-75); Platelet Count 281 X10^3/uL (150-400); Red Blood Cell Count 4.03 X10^6/uL (4.0-5.2); Red Cell Distribution Width 17.7 % (11.6-14.8); White Blood Cell Count 7.6 X10^3/uL (4.5-11.0)
[2024-01-03 17:33] LABS: Alanine Aminotransferase 11 IU/L (<35); Albumin 3.4 g/dL (3.5-5.0); Albumin Globulin Ratio 1.2 (1.0-2.8); Alkaline Phosphatase 108 U/L (38-126); Aspartate Aminotransferase 21 IU/L (14-36); BUN Creatinine Ratio 8.2 (6-22); Bilirubin Total 0.3 mg/dL (0.2-1.3); Blood Urea Nitrogen 5 mg/dL (7-17); Calcium 8.9 mg/dL (8.4-10.2); Carbon Dioxide 22 mmol/L (22-32); Chloride 105 mmol/L (98-107); Estimated Glomerular Filt Rate > 60 mL/min (>60); Globulin 2.9 g/dL (1.7-4.1); Glucose 91 mg/dL (70-100); HEMOLYSIS < 15 (0-50); Potassium 3.6 mmol/L (3.4-5.1); Sodium 135 mmol/L (137-145); Total Protein 6.3 g/dL (6.3-8.2)
== END ==
LOC: LAB 15:58
PROVIDERS: PCP Internal Medicine; Referring Provider Student in an Organized Health Care Education/Training Program; Visit Provider Student in an Organized Health Care Education/Training Program
DX: O14.00 Mild to moderate pre-eclampsia, unspecified trimester (principal)
CPT/HCPCS: 36415; 80053; 85025

== ENCOUNTER 2024-01-03 15:59 | Outpatient (CLI) | payer OTHER, SELFPAY ==
--- NOTE | 2024-01-03 16:43 | PM.OBTRLD ---
Visit Information Visit Information Date of evaluation: 01/03/24 Primary OB Provider: Kelli Zuleta Reason for Evaluation: Yes non-stress test Vital Signs Vital Signs: BP 146/85, P 77, T 36.2C [facility] Medical History (Updated 12/28/23 @ 15:41 by Kelli Zuleta DO) Tinnitus (~2020) Heavy menstrual period (~2018) delivery Surgical History (Updated 11/01/23 @ 19:10 by Ruby Chacon) [place] teeth extracted (~07/2022) Family History (Updated 11/01/23 @ 19:12 by Ruby Chacon) Grandmother Diabetes mellitus Grandmother Diabetes mellitus Father Hypertension Sister Bipolar disorder Schizophrenia Sister Diabetes mellitus Grandmother Diabetes mellitus Grandmother Diabetes mellitus Social History marital status: number of children: 0 household members: spouse lives independently: Yes caregiver/support person: No housing: house pets and animals: Yes (dog) education level: college (some college) occupational status: employed current occupational exposures/hazards: No special ev needs: No travel history: over 6 months ago seatbelt use: always water heater temp set < 120 deg: Yes working smoke detector in home: Yes fire extinguisher in home: No carbon monox detector in home: Yes firearms in home: No do you feel safe at home: Yes Smoking Status: Never smoker second hand exposure: No alcohol intake: former (occasionally when not ) substance use type: does not use during the past year weight has: remained stable well-balanced diet: about half the time daily servings fruits/ve-4 (average 1-2) caffeine: Yes (minimal/occasional) Type(s) of exercise: walking Objective Labs Labs: reviewed CBC/CMP, within normal parameters Evaluation Evaluation Baseline heart rate: 135 Variability: Moderate (11-25) monitor accelerations: Present Monitor Decelerations: Absent Category of Tracing: Reactive Diagnosis, Plan/Disposition Final Diagnosis (1) Pre-eclampsia, mild, antepartum: Status: Acute Plan/Disposition Plan: Follow up in clinic as scheduled. OB Disposition: home
== END 2024-01-03 16:54 | disposition home or self-care (01) ==
LOC: LABOR 16:30 → OB 01-08 06:15
PROVIDERS: PCP Internal Medicine; Referring Provider Student in an Organized Health Care Education/Training Program; Visit Provider Student in an Organized Health Care Education/Training Program
DX: O14.03 Mild to moderate pre-eclampsia, third trimester (principal); Z3A.35 35 weeks gestation of pregnancy
CPT/HCPCS: 36415; 59025; 80053; 85025; G0378; G0379

== ENCOUNTER 2024-01-10 19:03 | Inpatient (IN) | payer OTHER, SELFPAY ==
[2024-01-10 20:24] LABS: Add Manual Diff / Slide Review NO; Basophils Absolute Auto 0 /uL (0-100); Basophils Percent Auto 0.8 % (0-2); Eosinophils Absolute Auto 100 /uL (0-450); Eosinophils Percent Auto 1.3 % (2-4); Hematocrit 31.6 % (36-46); Hemoglobin 10.4 g/dL (12.0-16.0); Lymphocytes Absolute Auto 1300 /uL (1100-4500); Lymphocytes Percent Auto 20.3 % (25-40); Mean Corpuscular HGB Conc 32.8 % (30-36); Mean Corpuscular Volume 79.5 fL (80-100); Monocytes Absolute Auto 800 /uL (0-900); Monocytes Percent Auto 13.1 % (3-14); Neutrophils Absolute Auto 4000 /uL (1500-7000); Neutrophils Percent Auto 64.5 % (50-75); Platelet Count 303 X10^3/uL (150-400); Red Blood Cell Count 3.98 X10^6/uL (4.0-5.2); Red Cell Distribution Width 17.9 % (11.6-14.8); White Blood Cell Count 6.2 X10^3/uL (4.5-11.0)
[2024-01-10 20:37] LABS: Alanine Aminotransferase 15 IU/L (<35); Albumin 3.2 g/dL (3.5-5.0); Alkaline Phosphatase 95 U/L (38-126); Aspartate Aminotransferase 36 IU/L (14-36); Bilirubin Total 0.5 mg/dL (0.2-1.3); Calcium 8.5 mg/dL (8.4-10.2); Carbon Dioxide 21 mmol/L (22-32); Chloride 104 mmol/L (98-107); Estimated Glomerular Filt Rate > 60 mL/min (>60); Globulin 3.3 g/dL (1.7-4.1); Glucose 93 mg/dL (70-100); Potassium 3.3 mmol/L (3.4-5.1); Sodium 132 mmol/L (137-145); Total Protein 6.5 g/dL (6.3-8.2)
[2024-01-10 20:39] LABS: BUN Creatinine Ratio 4.4 (6-22); Blood Urea Nitrogen 2 mg/dL (7-17); HEMOLYSIS 79 (0-50)
[2024-01-10] MEDS: DINOPROSTONE VAG (CERVIDIL) 10 MG VAG (21:15)
--- NOTE | 2024-01-10 21:41 | PM.OBHP.1 ---
OB HPI Date/Time Date of admission: 01/10/24 History of Present Condition Chief complaint: induction : 2 Para: 0 Estimated Date of Delivery: 02/01/24 Estimated Gestational Age (weeks): 36+6 Narrative: Pamela Costa is a 28 year old female Comments: admitted for induction of labor due to pre-eclampsia without severe features. Indications Indication for induction OB: gestational HTN/pre-eclampsia History of Present care: good care Dating criteria: LMP confirmed by 1st trimester US Ultrasounds: normal mid trimester US Narrative: Ultrasound Ultrasound Details:: Anatomy sono 09/26/23: EFW 79%ile, fundal placenta, Bilateral borderline renal pelviectasis at 5 mm bilaterally. UTD A1. RVOT was not well seen; CL 3.4cm US 10/29/23: normal RVOT, right renal pelvis not seen, no growth assessment completed Growth 12/07/23: EFW 39%ile, vtx Specific Issues/Plans Pre-eclampsia without severe features--> diagnosed at 32+0wks; [?x ] NSTs twice weekly; [x? ] weekly Pre-E labs; [?x ] growth sonos q 4 weeks;?[x? ] IOL 37 weeks (scheduled 01/10) GBS positive renal pelviectasis--> follow-up US unable to evaluate right kidney, should probably have renal ultrasound Abnormal 1hr GTT, normal 3hr GTT Hx of 21wk PPROM with 22wk delivery--> [ x] CL screening 16-24wks Obesity (pre-preg BMI 39) Late transfer from [facility] at 21wks [x] cfDNA- low risk XX Yung (active duty) Assigned to [facility] Preadmission Labs Blood type: A (+) positive -: Antibody screen: negative, Cystic fibrosis screen: unknown, GBS status: positive, HBsAG: negative, HIV: negative, HSV 1: unknown, HSV 2: unknown and RPR/VDLR: negative -: Chlamydia screen: not detected and Gonorrhea screen: not detected -: Rubella: immune and Varicella: immune HCT: 31.6 HCAB: negative PAP: Normal 1 hr GTT: 145 3 hr GTT: 3 hr (normal) Evaluation Evaluation Baseline heart rate: 120 Variability: Moderate (11-25) monitor accelerations: Present Monitor Decelerations: Absent Contraction Frequency (minutes): 0 Category of Tracing: Reactive Dilation (cm): 0 Effacement (%): 0 station: -3 Position of cervix: posterior Consistency: medium PFSH Medical History (Updated 12/28/23 @ 15:41 by Kelli Zuleta DO) Tinnitus (~2020) Heavy menstrual period (~2018) delivery Surgical History (Updated 11/01/23 @ 19:10 by Ruby Chacon) [place] teeth extracted (~07/2022) Family History (Updated 11/01/23 @ 19:12 by Ruby Chacon) Grandmother Diabetes mellitus Grandmother Diabetes mellitus Father Hypertension Sister Bipolar disorder Schizophrenia Sister Diabetes mellitus Grandmother Diabetes mellitus Grandmother Diabetes mellitus Social History marital status: number of children: 0 household members: spouse lives independently: Yes caregiver/support person: No housing: house pets and animals: Yes (dog) education level: college (some college) occupational status: employed current occupational exposures/hazards: No special ev needs: No travel history: over 6 months ago seatbelt use: always water heater temp set < 120 deg: Yes working smoke detector in home: Yes fire extinguisher in home: No carbon monox detector in home: Yes firearms in home: No do you feel safe at home: Yes Smoking Status: Never smoker second hand exposure: No alcohol intake: former (occasionally when not ) substance use type: does not use during the past year weight has: remained stable well-balanced diet: about half the time daily servings fruits/ve-4 (average 1-2) caffeine: Yes (minimal/occasional) Type(s) of exercise: walking Meds Home Medications and Allergies Home Medications Medication Instructions Recorded Confirmed Type vitamin-ferrous sulfate tab PO 09/18/23 01/10/24 History 27 mg iron-folic acid 0.8 mg tablet breast pump #1 ea 11/05/23 01/10/24 Rx Allergies Allergy/AdvReac Type Severity Reaction Status Date / Time No Known Drug Allergies Allergy Unverified 01/10/24 08:37 Review of Systems Review of Systems ROS: Yes All systems reviewed with the patient and are negative except as otherwise documented OB Exam Vital signs Blood Pressure: 143/86 Pulse Rate: 78 Temperature: 97.2 F HENMT Head: normal to inspection Resp Effort & Inspection: normal respiratory effort and able to speak in complete sentences Extremities Lower extremity: Yes normal to inspection GI Other: gravid, nontender, nondistended Other: EFW 3200g Objective Labs 01/10/24 20:10 01/10/24 20:10 Labs: Laboratory Results - last 24 hr 01/10/24 20:10 WBC 6.2 RBC 3.98 L Hgb 10.4 L Hct 31.6 L MCV 79.5 L MCH 26.0 MCHC 32.8 RDW 17.9 H Plt Count 303 Neut % (Auto) 64.5 Lymph % (Auto) 20.3 L [place] % (Auto) 13.1 Eos % (Auto) 1.3 L Baso % (Auto) 0.8 Neut # (Auto) 4000 Lymph # (Auto) 1300 [place] # (Auto) 800 Eos # (Auto) 100 Baso # (Auto) 0 Sodium 132 L Potassium 3.3 L Chloride 104 Carbon Dioxide 21 L BUN 2 L Creatinine 0.45 L Estimated GFR > 60 BUN/Creatinine Ratio 4.4 L Glucose 93 Calcium 8.5 Total Bilirubin 0.5 AST 36 ALT 15 Alkaline Phosphatase 95 Total Protein 6.5 Albumin 3.2 L Globulin 3.3 Albumin/Globulin Ratio 1.0 Blood Type A Positive Antibody Screen Negative Assessment and Plan Assessment and Plan Assessment and Plan narrative: 28yo at 36+6wks admitted for cervical ripening overnight, with goal of delivery after 37+0wks due to pre-eclampsia without severe features (diagnosed at 32wks for mild range blood pressures and urine p:c >0.3). -CBC, CMP, T&S on admission -continuous EFM -epidural PRN -GBS POS, ampicillin for prophylaxis once in active labor or ruptured membranes (whichever happens first) -PPH risk low -VTE risk low, SCDs with epidural -anticipate L&D Counseling: Common procedures and interventions related to the management of were explained to the patient, including assistance at vaginal delivery with episiotomy, vacuum, or forceps, use of medications to stop premature labor or induce labor, and assessment including auscultation (listening to the heart), use of electronic monitoring (external and / or internal), and use of scalp electrode and/or intrauterine pressure catheter.? It was also explained that approximately 20-30% of mothers have a need for delivery during their labor course. It was explained to the patient that , labor and delivery are ordinarily normal physiological events and can be expected to provide a healthy outcome for mother and baby in the majority of cases. However, there are complications that may arise during , labor, and delivery, such as: hemorrhage requiring administration of blood and/or blood products, surgical intervention, possibly even hysterectomy for life-saving purposes; possibility of infection requiring antibiotics, prolonged hospital stay, and rarely surgical intervention; possibility of blood clots;? possibility of retained products of conception requiring surgical intervention;? possibility of serious tears or injury to the vagina, cervix, perineum, or rectum;? possibility of injury to abdominal structures if delivery is required;? and rarely maternal or may occur. Time-Based Coding :: [20min] spent with patient and on the chart (including review of chart, obtaining history, exam, reviewing outside data, placing orders, documenting exam and treatment plan, and counseling patient) on [01/10/24].
[2024-01-10 21:52] VITALS: BP 143/86; PULSE 78; TEMP 36.2
[2024-01-11 02:17] VITALS: BP 143/86
--- NOTE | 2024-01-11 07:49 | PM.OBPNLAB ---
Date/Time Date Patient Seen: 01/11/24 Time Patient Seen: 07:15 Pain Control Pain control: tolerating well Comments: pt denies cramping, states she was able to get some sleep overnight, no additional concerns Pelvic Exam Dilation (cm): 1.5 Effacement (%): 10 station: -2 Amniotic membrane status: Intact Contractions Contractions on admission: none Monitor mode: External Contraction pattern: Absent Status status: Category l Heart Rate Baseline: 140 Monitor Accelerations: Present Monitor Decelerations: Absent Monitor Variability: Moderate Assessment and Plan Assessment: induction ongoing Plan: continuous present management Comments: 28yo at 37w0d D=early OSH US, HD2 of medically indicated IOL in setting of pre-eclampsia without severe features at early term IOL s/p cervidil, 1-2cm but minimal effacement start additional cervical ripening misoprostol, assess in 4-6h for further pitocin augmentation BP low-mild range since admission and will follow CEFM/toco cat 1 tracing, maternal VSS/afebrile GBS+, start abx once in active labor
[2024-01-11] MEDS: miSOPROStoL 25 MCG TABLET PO ×2 (09:46→12:42)
[2024-01-11] MEDS: LACTATED RINGERS 1,000 ML 100 ML IV ×2 (16:12→22:06)
[2024-01-11] MEDS: OXYTOCIN PREMIX 30 UNIT/500 ML PLAST..BAG IV (17:50)
[2024-01-11] MEDS: NIFEdipine 30 MG TAB ER PO (18:49)
[2024-01-12] MEDS: LACTATED RINGERS 1,000 ML 100 ML IV (07:58)
[2024-01-12] MEDS: AMPICILLIN 2,000 MG in SODIUM CHLORIDE 0.9% 100 ML 200 MG IV (08:15)
--- NOTE | 2024-01-12 09:04 | P.PNOB_ITS ---
Date/Time Date Patient Seen: 01/12/24 Time Patient Seen: 08:30 Pain Control Pain control: tolerating well Comments: Pt states mild increase in cramping, tolerable with supportive measures Pelvic Exam Dilation (cm): 4 Effacement (%): 80 station: -2 Amniotic membrane status: Intact Comments: soft, mid-position Contractions Contractions on admission: none Monitor mode: External Pitocin rate (mU/min): 14 Contraction frequency (min): 4 Contraction duration (min): 1 Contraction pattern: Absent Contraction intensity: Mild Status status: Category l Heart Rate Baseline: 130 Monitor Accelerations: Present Monitor Decelerations: Absent Monitor Variability: Moderate Comments: cat 1 reactive Assessment and Plan Assessment: induction ongoing Plan: continuous present management Comments: 28yo at 37w1d D= early OSH US, HD3 for IOL in setting of pre-eclampsia without severe features IOL interval cervical change to 4/80/-2, soft/mid-position and consistent with beginning labor continue up-titration on pitocin per protocol anticipate AROM at time of next check if no further interval dilation Abx per protocol initiated early this AM for known GBS+ pre-eclampsia without severe features asymptomatic intermittent severe range BP afternoon of HD2, started on nifedipine 30mg ER with immediate normalization/low mild range pt denies GOODMAN, RUQ pain, vision changes, no hyper-reflexia on exam repeat CBC/CMP ordered this AM to assess for any changes in plt/LFTs, low threshold to initiate magnesium gtt in jehovah's witness of recurrent severe range BP or lab abberrations anticipate
[2024-01-12 09:43] LABS: Add Manual Diff / Slide Review NO; Basophils Absolute Auto 100 /uL (0-100); Basophils Percent Auto 0.7 % (0-2); Eosinophils Absolute Auto 100 /uL (0-450); Eosinophils Percent Auto 0.8 % (2-4); Hematocrit 34.6 % (36-46); Hemoglobin 11.2 g/dL (12.0-16.0); Lymphocytes Absolute Auto 1000 /uL (1100-4500); Lymphocytes Percent Auto 12.1 % (25-40); Mean Corpuscular HGB Conc 32.3 % (30-36); Mean Corpuscular Hemoglobin 25.7 PG (26-34); Mean Corpuscular Volume 79.5 fL (80-100); Monocytes Absolute Auto 700 /uL (0-900); Monocytes Percent Auto 8.6 % (3-14); Neutrophils Absolute Auto 6100 /uL (1500-7000); Neutrophils Percent Auto 77.8 % (50-75); Platelet Count 319 X10^3/uL (150-400); Red Blood Cell Count 4.35 X10^6/uL (4.0-5.2); White Blood Cell Count 7.9 X10^3/uL (4.5-11.0)
[2024-01-12 10:06] LABS: Alanine Aminotransferase 15 IU/L (<35); Albumin 3.6 g/dL (3.5-5.0); Albumin Globulin Ratio 1.2 (1.0-2.8); Alkaline Phosphatase 128 U/L (38-126); Aspartate Aminotransferase 22 IU/L (14-36); BUN Creatinine Ratio 3.3 (6-22); Bilirubin Total 0.3 mg/dL (0.2-1.3); Blood Urea Nitrogen 2 mg/dL (7-17); Carbon Dioxide 22 mmol/L (22-32); Chloride 107 mmol/L (98-107); Estimated Glomerular Filt Rate > 60 mL/min (>60); Globulin 3.1 g/dL (1.7-4.1); Glucose 109 mg/dL (70-100); HEMOLYSIS < 15 (0-50); Potassium 3.3 mmol/L (3.4-5.1); Sodium 137 mmol/L (137-145); Total Protein 6.7 g/dL (6.3-8.2)
[2024-01-12] MEDS: AMPICILLIN 1,000 MG in SODIUM CHLORIDE 0.9% 100 ML 200 MG IV ×2 (12:56→17:03)
--- NOTE | 2024-01-12 15:59 | PM.AN.REGBLK ---
Regional Block Pre-procedure Procedure: Continuous Lumbar Epidural for L&D Attending OB provider: Kelli Zuleta PMH/ROS narrative: PIH/pre-e term PSH/Anesthesia history narrative: dental extractions under local anesthesia ASA Class: III Labs: Hct 34.6 % (36-46) L 01/12/24 09:40 Plt Count 319 X10^3/uL (150-400) 01/12/24 09:40 Medications: Current Medications Generic Name Dose Route Start Last Admin Trade Name Freq PRN Reason Stop Dose Admin Calcium Carbonate 1,000 mg 01/10/24 19:15 Calcium Carbonate 500 Mg Tab PO Q2HR PRN Dyspepsia Carboprost Tromethamine 250 mcg 01/10/24 19:15 Carboprost 250 Mcg/Ml Ampul IM Q90M PRN Bleeding Tranexamic Acid 1,000 mg/ 100 mls @ 600 mls/hr 01/10/24 19:15 Sodium Chloride IV NOW PRN Bleeding Ampicillin Sodium 1,000 mg/ 100 mls @ 200 mls/hr 01/10/24 23:30 01/12/24 12:56 Sodium Chloride IV 200 mls/hr Q4H JESÚS Administration Oxytocin/Lactated Ringer's 30 unit in 500 mls @ 200 mls/hr 01/10/24 19:15 Oxytocin Premix IV CONT PRN Bleeding Protocol Oxytocin/Lactated Ringer's 30 unit in 500 mls @ 2 mls/hr 01/11/24 17:30 01/11/24 17:50 Oxytocin Premix IV 2 milliunit/min TITRATE JESÚS 2 mls/hr Administration Protocol 2 MILLIUNIT/MIN Lidocaine HCl 20 ml 01/10/24 19:15 Lidocaine 1% 20 Ml INJ INTRA-OP PRN Post Delivery Methylergonovine Maleate 0.2 mg 01/10/24 19:15 Methylergonovine 0.2 Mg/Ml Vial IM NOW PRN Bleeding Methylergonovine Maleate 0.2 mg 01/10/24 19:15 Methylergonovine 0.2 Mg Tablet PO Q6HR PRN Heavy Bleeding Misoprostol 400 mcg 01/10/24 19:15 Misoprostol 200 Mcg Tablet SL NOW PRN Bleeding Misoprostol 800 mcg 01/10/24 19:15 Misoprostol 200 Mcg Tablet OK NOW PRN Bleeding Misoprostol 25 mcg 01/11/24 08:41 01/11/24 12:42 Misoprostol 25 Mcg Tablet PO 25 mcg Q3H PRN Administration Labor Induction Naloxone HCl 0.2 mg 01/10/24 19:15 Naloxone 0.4 Mg/Ml Vial IV Q2MIN PRN Opiate Reversal Nifedipine 30 mg 01/12/24 18:00 Nifedipine 30 Mg Tab Er PO DAILY JESÚS Ondansetron HCl 4 mg 01/10/24 19:15 Ondansetron 4 Mg/2 Ml Inj IV Q4HR PRN Nausea And Vomiting Oxytocin 10 unit 01/10/24 19:15 Oxytocin 10 Unit/Ml Vial IM NOW PRN Bleeding Allergies: Allergies Allergy/AdvReac Type Severity Reaction Status Date / Time No Known Drug Allergies Allergy Verified 01/11/24 02:13 Procedure Insertion date: 01/12/24 Insertion time: 15:34 Prep/Local: betadine x3 (chloraprep not betadine) and 1% lidocaine Interspace: l3 l4 Patient position: sitting Needle: 18 gauge Hustead Loss of resistance with: saline LATRICIA at (cm): 6 Catheter placed at SKIN (cm): 15 Initial Medications TEST DOSE time: 15:35 TEST DOSE: 1.5% lidocaine with epinephrine 1:200k (mL): 3 BOLUS DOSE (mL): 5 Infusion INFUSION: with fentanyl 2 mcg/mL and 0.0625% bupivacaine Initial rate (mL/hr): 10 Post-procedure Anesthesia date START: 01/12/24 Anesthesia time START: 15:20 Anesthesia date END: 01/12/24 Anesthesia time END: 19:33 Post-procedure Anesthesia Assessment: Yes CV function: HR/BP stable, Yes Resp function: RR/sat/airway adequate, Yes Post-op hydration adequate, Yes Pain control adequate, Yes Nausea & vomiting absent, Yes Temperature > 36 C, Yes Mental status appropriate and Yes Anesthesia complications (none!)
[2024-01-12] MEDS: NIFEdipine 30 MG TAB ER PO (17:53)
--- NOTE | 2024-01-12 19:33 | PM.OBPRVD ---
Events: Pre-Eclampsia Labor & Delivery Delivery date: 01/12/24 Intrapartal Events: Mild Preeclampsia Cervical ripening method: per misoprostal protocol Induction method: per pitocin protocol Delivery augmentation: rupture of membranes and pitocin Delivery monitor: external FHT Route of delivery: Episiotomy description: None L&D Laceration Description: Vaginal - 2nd Degree Delivery repair: vicryl Estimated blood loss (mL): 300 Anesthesia Type: Epidural Complications: none Narrative: Notified per RN of pt urge to push, SVE C/C/+1. On entry into room pt in dorsal lithotomy, states sensation of constant rectal pressure. +2 station with initiation of maternal expulsive efforts, progressive descent to +4. head delivered over intact perineum, loose nuchal cord x1 reduced without difficulty. Anterior shoulder delivered with gentle downward traction followed by rapid delivery of posterior shoulder and body. was placed on maternal abdomen and had vigorous cry. Delayed cord clamping x1min. Cord clamped x2 and cut by family member per patient request; 3VC noted. Active management of third stage with subsequent spontaneous delivery of placenta under gentle traction, inspected and noted to be intact. Vaginal exam revealed a deep L sulcal/sidewal laceration that was repaired with 2-0 vicryl suture in a running locked fashion with subsequently noted hemostasis. Pt was straight catheterized for approx 100cc clear urine. Fundus was palpated and noted to be firm. All sponges were removed from the vagina and counts were correct x2. Baby 1: gender: Female Presentation: vertex Position: Left Occiput Transverse Placenta delivery description: Spontaneous Cord Vessel Description: 3 Vessels score (1 min): 8 score (5 min): 9 Plan for aftercare: Routine care
[2024-01-12] MEDS: WITCH HAZEL/GLYCERIN PADS 1 EACH TOP (22:33)
[2024-01-12] MEDS: IBUPROFEN 600 MG TABLET PO (22:34)
[2024-01-12] MEDS: DERMOPLAST SPRAY 20% 60 ML 1 SPRAY TOP (22:34)
[2024-01-12] MEDS: LANOLIN OINT 7 GM 1 APPLIC TOP (22:34)
[2024-01-13 06:23] LABS: Hematocrit 32.2 % (36-46); Hemoglobin 10.6 g/dL (12.0-16.0)
[2024-01-13] MEDS: PRENATAL VIT,CALC/IRON/FOLIC 1 TABLET 1 TAB PO (09:02)
[2024-01-13] MEDS: ACETAMINOPHEN 325 MG TABLET 650 MG PO ×2 (09:02→14:54)
[2024-01-13] MEDS: NIFEdipine 30 MG TAB ER PO (09:02)
--- NOTE | 2024-01-13 09:19 | P.PNOB_ITS ---
Subjective - OB Subjective Patient comments: no complaints [place] baby status: doing well and nursing well (with support ) Narrative: PPD1 s/p of LBFI Date Patient Seen: 01/13/24 Time Patient Seen: 09:22 Exam Vital Signs (past 8 hours): BP 124-147/60-93 HR 72-95 RR16-18 Tc 98.5 Const General: cooperative, healthy appearing and comfortable Nutritional Appearance: obese Orientation: alert, awake and oriented x3 Limitations: mental status not altered HENMT Head: normal to inspection Resp Effort & Inspection: normal respiratory effort Cardio Pulses: normal peripheral pulses GI Inspection: normal to inspection Other: fundus firm << umb, non-tender Other: deferred, pt states lochia is slowing, able to void without difficulty Skin General: no rashes or lesions noted Neuro General: patient alert, patient awake and patient oriented x3 Extrem General: normal to inspection Psych Mental Status: mental status grossly normal Judgment: judgment good Objective Labs 01/13/24 06:10 01/12/24 09:50 Labs: Laboratory Results - last 24 hr 01/12/24 01/12/24 01/13/24 09:40 09:50 06:10 WBC 7.9 RBC 4.35 Hgb 11.2 L 10.6 L Hct 34.6 L 32.2 L MCV 79.5 L MCH 25.7 L MCHC 32.3 RDW 18.0 H Plt Count 319 Neut % (Auto) 77.8 H Lymph % (Auto) 12.1 L [place] % (Auto) 8.6 Eos % (Auto) 0.8 L Baso % (Auto) 0.7 Neut # (Auto) 6100 Lymph # (Auto) 1000 L [place] # (Auto) 700 Eos # (Auto) 100 Baso # (Auto) 100 Sodium 137 Potassium 3.3 L Chloride 107 Carbon Dioxide 22 BUN 2 L Creatinine 0.61 Estimated GFR > 60 BUN/Creatinine Ratio 3.3 L Glucose 109 H Calcium 9.0 Total Bilirubin 0.3 AST 22 ALT 15 Alkaline Phosphatase 128 H Total Protein 6.7 Albumin 3.6 Globulin 3.1 Albumin/Globulin Ratio 1.2 Assessment & Plan Plan day: 1 plan OB: routine care Comments: 28yo PPD1 s/p of LBFI following medical IOL at early term for preE without severe features; doing well routine care , support PRN A+, GBS+ s/p adeqaute intrapartum abx, rubella non-immune --> MMR at discharge address contraception prior to dc preE without severe features pt remains asymptomatic, normotensive/low mild range on nifedipine 30mg XR, cont repeat interval PIH labs stable since admission without concern for worsening PIH cont to monitor BP per protocol Dispo: pending clinical course, anticipate dc to home tomorrow, PPD2 Time-Based Coding :: [TOTAL MINUTES] spent with patient and on the chart (including review of chart, obtaining history, exam, reviewing outside data, placing orders, documenting exam and treatment plan, and counseling patient) on [DATE].
[2024-01-13] MEDS: WITCH HAZEL/GLYCERIN PADS 1 EACH TOP (19:31)
[2024-01-14] MEDS: ACETAMINOPHEN 325 MG TABLET 650 MG PO (00:23)
[2024-01-14] MEDS: PRENATAL VIT,CALC/IRON/FOLIC 1 TABLET 1 TAB PO (09:01)
[2024-01-14] MEDS: NIFEdipine 30 MG TAB ER PO (09:01)
--- NOTE | 2024-01-14 12:41 | PM.OBDS.1 ---
Discharge Providers Provider Date of admission: 01/10/24 19:03 Discharge Date: 01/14/24 Primary care physician: Anthony Zambrano MD Consults: 01/10/24 19:15 Consult to Anesthesiology Urgent Comment: Consulting Provider: Anesthesiologist Reason for consultation: Epidural 01/13/24 19:27 Consult to Wellness Director Routine Comment: 01/13/24 21:29 Consult to Wellness Director Routine Comment: Discharge provider: Lisa Savage MD Summary Hospital Course Date Patient Seen: 01/14/24 Time Patient Seen: 12:41 Diagnoses: preE without severe features, s/p Hospital Course: 28yo admitted to facility at 36w6d for cervical ripening, [facility] recommended early-term IOL in setting of pre-eclampsia originally diagnosed at 32wga without severe features. Patient underwent cervical ripening with cervidil followed by misoprostol. Augmentation with pitocin per protocol was initiated in afternoon of HD2 with appropriate interval cervical change. Noted intermittent non-sustained severe range BP in afternoon of HD2 and patient started on low-dose nifedipine 30mg XR with immediate response. AROM performed at 4-5cm of clear fluid following adequate abx (GBS+) with subsequent progression to complete dilation. Second stage was uncomplicated, noted deep L vaginal/sulcal laceration with brisk bleeding that was repaired with running locked 2-0 vicryl without complication. course was uncomplicated and patient remained normotensive/low mild range BP on continued nifedipine. Repeat PIH labs without interval change and thus magnesium infusion not completed. Patient was meeting all discharge milestones and requested discharge to home on PPD2. Planned one week f/u for BP/mood check. Peripartum Data Delivery Method: Natural Vaginal Laceration Description: Vaginal - 2nd Degree complications: none [place] 1: Gender: Female Disposition of : home Discharge Diagnosis (1) Encounter for vaginal delivery: Status: Acute (2) Pre-eclampsia, mild, antepartum: Status: Acute Status at Discharge Cognitive/behavioral status at discharge: oriented and confused Functional status at discharge: independent ambulation Overall status at discharge: patient is back to baseline Time Spent with Patient Time attestation: Total time spent providing and/or coordinating discharge services: Time spent: Less than 30 minutes Objective Labs 01/13/24 06:10 01/12/24 09:50 Exam Vital Signs (past 8 hours): BP 128-140/90-95 HR 80s RR 18 Tc afebrile Const General: cooperative, healthy appearing and comfortable Nutritional Appearance: obese Orientation: alert, awake and oriented x3 HENMT Head: normal to inspection Chest Chest: normal inspection of the chest Breast inspection: normal inspection of the breasts Resp Effort & Inspection: normal respiratory effort Cardio Pulses: normal peripheral pulses GI Inspection: normal to inspection Palpation: soft Other: fundus firm << umb Other: deferred Back/Spine/Pelvis Back: normal to inspection Skin General: no rashes or lesions noted Neuro General: patient alert, patient awake and patient oriented x3 Extrem General: normal to inspection Psych Mental Status: mental status grossly normal Judgment: judgment good Discharge Plan Discharge Plan Patient Disposition: Home Provider Discharge Comment: nothing in the vagina for 4 weeks; no tampons, intercourse, douching, swimming in fresh water/pools/hot tubs. Tub baths are okay if the tub is cleaned well first. Discharge orders & Medications Prescriptions: New nifedipine 30 mg Tablet Extended Release 24hr 30 mg PO DAILY Qty: 30 0RF acetaminophen 325 mg Tablet 650 mg PO Q6HR PRN (Reason: Pain, Mild (1-3)) Qty: 30 0RF Dermoplast (with menthol) 20-0.5 % Aerosol 1 spray topical Q1HR PRN (Reason: perineal pain) Qty: 56 1RF ibuprofen 600 mg Tablet 600 mg PO Q6HR PRN (Reason: Pain, Mild (1-3)) Qty: 30 0RF Purelan Cream 1 applic topical PRN PRN (Reason: Tenderness) Qty: 7 2RF [employer] Elin 12.5-50 % Pads, Medicated 1 pad topical Q30M PRN (Reason: Itching) Qty: 40 0RF Continued (DME) breast pump Device See Rx Instructions .Route Qty: 1 0RF Rx Instructions: [employer] vit-ferrous sulfat-FA 27 mg iron- 0.8 mg tablet 1 tab PO DAILY Follow up/Referrals: Anthony Zambrano MD [Primary Care Provider] - Lisa Savage MD [Physician] - 1 Week (Please follow up with Dr. Savage in one week for a blood pressure check. You will also need to schedule a 6 week check up. If you don't hear from the clinic by the end of day on Sunday, please call to schedule. Thank you!) Diet/Activity/Treatments Diet: Regular Skin/Wound/Dressing Care Report to your healthcare provider any signs of infection, such as:: chills, fever, increased pain and unusual drainage Visit Report/Discharge Packet Instructions: DI for Labor and Delivery, Vaginal Stand Alone Forms: Patient Portal/API, Stroke Signs & Symptoms Discharge Data Primary Care Provider: Anthony Zambrano Attending Provider: Kelli Zuleta Admemanuel Date/Time: 01/10/24 19:03
[2024-01-14 13:20] VITALS: BP 153/96; PULSE 96; RESP 16; TEMP 36.9
== END 2024-01-14 14:32 | disposition home or self-care (01) | DRG 807 ==
PROVIDERS: Obstetrics & Gynecology; Admitting Provider Student in an Organized Health Care Education/Training Program; PCP Internal Medicine; Referring Provider Student in an Organized Health Care Education/Training Program; Visit Provider Student in an Organized Health Care Education/Training Program
DX: O14.04 Mild to moderate pre-eclampsia, complicating childbirth (principal); Z37.0 Single live birth; Z3A.36 36 weeks gestation of pregnancy; O99.824 Streptococcus B carrier state complicating childbirth; O70.1 Second degree perineal laceration during delivery
CPT/HCPCS: 36415; 59050; 59410; 80053; 85014; 85018; 85025; 86850; 86900; 86901; G0378; G0379; J0290; J2590